=== PATIENT | female | born 1990 | race Caucasian/White ===

== ENCOUNTER 2017-11-29 04:34 | Emergency (ER) | END 2017-11-29 08:57 | disposition home or self-care (01) ==

== ENCOUNTER 2019-02-19 22:05 | Emergency (ER) | payer MEDICAID ==
[~2019-02-19] VITALS: Ht 157.5 cm; Wt 66.0 kg
[~2019-02-19 22:05] MED LIST: AMOX1TAB10 PO; CEPH-443 PO; CYCL10TA7 PO; GENT5DRO28 RIGHT EYE; IBUP-1542 PO; IBUP800T48 PO
[2019-02-19 22:13] VITALS: Ht 157.5 cm; Wt 66.0 kg
--- NOTE | 2019-02-19 22:44 | ERD ---
ER Documentation Chief Complaint Chief Complaint RICE x1 week w/ dizziness/subjective fever/vomiting/dysuria HPI This is a 29-year-old female who presents emergency department with multiple c omplaints including headache for about a week, vomited once with nonbilious and nonbloody emesis today, throat pain, fever, chills for about a week. LMP: 02/12/2019. G2, . Denies headache, head injury, loss of consciousness, dizziness, neck pain, neck stiffness, difficulty swallowing, difficulty breathing lying flat, shoulder pain, chest pain, back pain, abdominal pain, nausea, vomiting, constipation, diarrhea, urinary symptoms, or possibility being , loss of bowel and bladder control, trauma, injury, falls, difficulty walking due to pain, numbness or tingling sensation, calf pain, recent travel, recent major surgery in the last 3 weeks, calf pain, recent long travel, recent exposure to any illness, recent antibiotic use in the last 3 months, seizures. Past medical history: Surgical history: Social: Denies smoking, use of alcoholic beverages, use of illegal drugs. ROS All systems reviewed and are negative except as per history of present illness. Medications Home Meds Active Scripts Ondansetron Hcl* (Zofran*) 4 Mg Tablet, 4 MG PO Q8H PRN for NAUSEA AND/OR VOMITING, #30 TAB Prov:HILARIA CHRISTIAN 02/19/19 Acetaminophen* (Tylophen*) 500 Mg Capsule, 1 CAP PO Q6H PRN for PAIN AND OR ELEVATED TEMP, #20 CAP Prov:HILARIA CHRISTIAN 02/19/19 Ibuprofen* (Motrin*) 600 Mg Tab, 600 MG PO Q6H PRN for PAIN AND OR ELEVATED TEMP, #30 TAB Prov:HILARIA CHRISTIAN 02/19/19 Amoxicillin/Potassium Clav (Amox-Clav 875-125 mg Tablet) 875-125 mg Tab, 1 TAB PO BID for 7 Days, #14 TAB Prov:HILARIA CHRISTIAN 02/19/19 Cephalexin* (Keflex*) 500 Mg Capsule, 500 MG PO QID for 7 Days, CAP Prov:AGNIESZKA BLACKWELL PA-C 11/29/17 Ibuprofen* (Motrin*) 600 Mg Tab, 600 MG PO Q6, #30 TAB Prov:AGNIESZKA BLACKWELL PA-C 11/29/17 Cyclobenzaprine Hcl* (Cyclobenzaprine Hcl*) 10 Mg Tablet, 10 MG PO TID, #15 TAB Prov:JORJE SHAH. ROLLS BAKER 01/15/16 Ibuprofen* (Motrin*) 800 Mg Tab, 800 MG PO Q6H PRN for PAIN AND OR ELEVATED TEMP, #30 TAB Prov:JORJE SHAH X. ROLLS BAKER 01/15/16 Gentamicin Sulfate* (Gentamicin Sulfate* Ophth) 0.3% - 5 Ml Drops, 1 DROP RIGHT EYE Q4, #1 EA Prov:AGNIESZKA BLACKWELL PA-C 11/12/15 Amox Tr/Potassium Clavulanate (Amox Tr-K Clv 875-125 Mg Tab) 1 Tab Tablet, 1 TAB PO BID, #14 TAB Prov:AGNIESZKA BLACKWELL PA-C 11/12/15 Allergies Allergies: Coded Allergies: No Known Allergy (Unverified , 03/29/14) PMhx/Soc Medical and Surgical Hx: pt denies Medical Hx History of Surgery: No Anesthesia Reaction: No Hx Neurological Disorder: No Hx Respiratory Disorders: No Hx Cardiac Disorders: No Hx Psychiatric Problems: No Hx Miscellaneous Medical Probl: No Hx Alcohol Use: No Hx Substance Use: No Hx Tobacco Use: No Smoking Status: Never smoker Physical Exam Vitals Physical Exam Head: Atraumatic Eyes: Normal Conjunctiva ENT: Normal External Ears, Nose and Mouth. Bilateral ears: TMs are not erythematous. No bleeding. No discharge. No hearing loss. No mastoid tenderness. Nose: There is no frontal or maxillary sinus tenderness palpation. Throat: Uvula is in midline and nondisplaced. Tonsils are +2 bilaterally with redness and with exudates. Tolerating secretions. Patent airway. Speaks full and clear sentences. No tripoding. Neck: Full range of motion. No meningismus. No nuchal rigidity. No signs of meningeal irritation. Resp: Clear to auscultation bilaterally. No accessory muscle use in breathing. Cardio: Regular rate and rhythm, no murmurs Abd: Soft, non tender, non distended. Normal bowel sounds. Negative Love sign. Negative Reynolds sign (heel jar test). Negative psoas sign. Negative Rovsing sign. No CVA tenderness. Ambulatory with steady gait and without pain to abdomen. Skin: No petechiae or rashes. Color appears normal for ethnicity. No skin tenting. No signs of severe dehydration. Back: No midline or flank tenderness Ext: No cyanosis, or edema Neur: Awake and alert. No neurological deficits. Psych: Normal Mood and Affect Results 24 hrs Laboratory Tests Test 02/19/19 23:09 02/19/19 23:14 Urine Color STRAW Urine Clarity CLEAR Urine pH 6.0 Urine Specific Recluse 1.009 Urine Ketones NEGATIVE mg/dL Urine Nitrite NEGATIVE mg/dL Urine Bilirubin NEGATIVE mg/dL Urine Urobilinogen NEGATIVE mg/dL Urine Leukocyte Esterase NEGATIVE Haritha/ul Urine Microscopic RBC 0 /HPF Urine Microscopic WBC 1 /HPF Urine Squamous Epithelial Cells FEW /HPF Urine Bacteria FEW /HPF Urine Hemoglobin 1+ mg/dL Urine Glucose NEGATIVE mg/dL Urine Total Protein NEGATIVE mg/dl POC Beta HCG, Qualitative NEGATIVE Current Medications Medications Dose Sig/Aide Start Time Status Last (Trade) Ordered Route PRN Stop Time Admin Dose Reason Admin 1,000 mg ONCE STAT 02/19/19 DC 02/19/19 Acetaminophen PO 22:47 23:12 (Tylenol 02/19/19 22:50 Tab) Ibuprofen 800 mg ONCE ONCE 02/19/19 DC (Motrin) PO 23:00 02/19/19 23:01 Sodium 1,000 ml @ Q1H ONCE 02/19/19 DC Chloride 1,000 mls/hr IV 23:00 02/19/19 23:00 Ketorolac 30 mg ONCE STAT 02/19/19 DC Tromethamine IV 22:50 (Toradol) 02/19/19 22:59 Ceftriaxone 1 gm ONCE ONCE 02/19/19 DC 02/19/19 Sodium IM 23:00 23:13 (Rocephin) 02/19/19 23:01 Ondansetron 4 mg ONCE STAT 02/19/19 DC 02/19/19 HCl (Zofran ODT 22:57 23:13 Odt) 02/19/19 22:59 Ibuprofen 800 mg ONCE ONCE 02/19/19 DC 02/19/19 (Motrin) PO 23:00 23:13 02/19/19 23:01 10 mg ONCE ONCE 02/19/19 DC 02/19/19 Dexamethasone IM 23:00 23:13 (Decadron) 02/19/19 23:01 Procedures/MDM This case was discussed with my supervising physician, Dr. Jose D Gerard who agreed with my medical decision making. Diagnostic tests: POC urine : Negative. Urinalysis: Reviewed. Culture urine: Sent. Treatment: Ceftriaxone IM. Dexamethasone IM. Zofran p.o. Tylenol. Toradol. Re-evaluation: Temperature responded to antipyretic medication. No episode of emesis here in the emergency department. No drooling. No difficulty swallowing. No nuchal rigidity. No signs of meningeal irritation. No accessory muscle use in breathing. Lung sounds are clear to auscultation. No abdominal tenderness. Stated that she feels much better at this time and that she is ready to go home. Stated that she is comfortable to go home. Differential diagnosis: I have low suspicion for sepsis, meningitis, mastoiditis, peritonsillar abscess, airway obstruction, bronchospasms, pneumonia, severe dehydration. Final diagnosis: Exudative tonsillitis. Prescription: Augmentin. Motrin. Tylenol. Zofran. Follow-up with PCP in the next 24-48 hours. Come back here in the emergency department for any new symptoms or any worsening symptoms. All questions and concerns were answered. Patient and family members verbalized understanding and agreed with plan of care. Hemodynamically stable on discharge. Departure Diagnosis: Primary Impression: Exudative tonsillitis Additional Impression: Pharyngitis Condition: Stable Additional Instructions: Follow-up with PCP in the next 24-48 hours. Come back here in the emergency department for any new symptoms or any worsening symptoms. HILARIA CHRISTIAN Feb 19, 2019 22:44
[2019-02-19] MEDS ORDERED: ACETAMINOPHEN 500 MG TAB PO STA (22:47)
[2019-02-19] MEDS ORDERED: KETOROLAC 30 MG INJ IV STA (22:50)
[2019-02-19] MEDS ORDERED: ONDANSETRON (ODT) 4 MG TAB ODT STA (22:57)
[2019-02-19] MEDS ORDERED: CEFTRIAXONE 1 GM INJ IM ONE (23:00)
[2019-02-19] MEDS ORDERED: SOD CHLORIDE 0.9% 1,000 ML IV ONE (23:00)
[2019-02-19] MEDS ORDERED: DEXAMETHASONE 10 MG/ML 1 ML INJ IM ONE (23:00)
[2019-02-19] MEDS ORDERED: IBUPROFEN 800 MG TAB PO ONE ×2 (23:00)
[2019-02-19] MEDS ORDERED: IBUP-1542 PO (23:36)
[2019-02-19] MEDS ORDERED: AMOX1TAB10 PO (23:36)
[2019-02-19] MEDS ORDERED: ONDA4TAB8 PO (23:37)
[2019-02-19] MEDS ORDERED: ACET500C5 PO (23:37)
[2019-02-20 00:45] VITALS: BP 104/66; PULSE 97; RESP 17
== END 2019-02-20 00:45 | disposition home or self-care (01) ==
LOC: FTE 22:05
DX: J03.90 Acute tonsillitis, unspecified (principal); J02.9 Acute pharyngitis, unspecified
CPT/HCPCS: 81001; 81025; 96372; J0696; J1100; Z7502; Z7610; J7030